=== PATIENT | male | born 1970 | race Caucasian/White ===

== ENCOUNTER 2016-07-04 00:19 | Emergency (ER) | payer MEDICARE, MEDICAID ==
[~2016-07-04] VITALS: Ht 182.9 cm; Wt 84.0 kg
[~2016-07-04 00:19] MED LIST: ALBU8.5H3 INH; ASPI-621 PO; ATEN-104 PO; ATEN25TA PO; ATEN50TA41 PO; ATOR20TA PO; CHLO5CAP2 PO; CLON1TAB PO; DOXE50CA PO; FLOMAX PO; FLUT12AE INH; GABA100C8 PO; LAMO25TA5 PO; OMEP20TA62 PO; SERT100T5 PO; TAMS-11 PO; TICA90TA PO; TRAM50TA2 PO
[2016-07-04 00:28] VITALS: BP 116/69
[2016-07-04] MEDS ORDERED: LIDOCAINE 1%, 20ML ONE (00:34)
[2016-07-04] MEDS ORDERED: LIDOCAINE 1%, 20ML INFIL ONE (01:00)
== END 2016-07-04 02:11 | disposition home or self-care (01) ==
LOC: ED 00:23
DX: S61.212A Laceration without foreign body of right middle finger without damage to nail, initial encounter (principal); S60.410A Abrasion of right index finger, initial encounter; I10 Essential (primary) hypertension; W22.8XXA Striking against or struck by other objects, initial encounter; Y93.89 Activity, other specified; Y92.89 Other specified places as the place of occurrence of the external cause; Y99.8 Other external cause status
CPT/HCPCS: 12001

== ENCOUNTER → 2016-08-09 | Outpatient (CLI) | payer MEDICARE, MEDICAID ==
[~2016-08-09] MED LIST changes: +GADOBUTROL 10 MMOL/10 ML PFS ONE
== END | disposition home or self-care (01) ==
LOC: CFH 12:26
PROVIDERS: ATTEND Registered Nurse
DX: M50.222 Other cervical disc displacement at C5-C6 level (principal); M50.223 Other cervical disc displacement at C6-C7 level; J32.0 Chronic maxillary sinusitis; H70.91 Unspecified mastoiditis, right ear; G93.89 Other specified disorders of brain; M48.06 Spinal stenosis, lumbar region; M50.30 Other cervical disc degeneration, unspecified cervical region; M25.78 Osteophyte, vertebrae
CPT/HCPCS: 70553; 72156; 82565; A9585

== ENCOUNTER → 2016-12-01 | Outpatient (CLI) | payer MEDICARE, MEDICAID ==
[~2016-12-01] MED LIST changes: -ALBU8.5H3 INH; +ALBU8.5H8 INH; +GABA-826 PO; -GABA100C8 PO; -GADOBUTROL 10 MMOL/10 ML PFS ONE
[2016-12-01 16:11] LABS: ASPARTATE AMINO TRANSFERASE 25 U/L (15-37); BLOOD UREA NITROGEN 17 mg/dL (7-18)
== END | disposition home or self-care (01) ==
LOC: CFH 11:02
PROVIDERS: ATTEND Internal Medicine Cardiovascular Disease
DX: E78.4 Other hyperlipidemia (principal); I10 Essential (primary) hypertension; R42 Dizziness and giddiness
CPT/HCPCS: 36415; 80053; 80061

== ENCOUNTER → 2017-04-13 | Outpatient (CLI) | payer MEDICARE, MEDICAID ==
[2017-04-13 13:08] LABS: ANION GAP 8 mmol/L (5-15); CALCIUM 8.4 mg/dL (8.5-10.1); CHLORIDE 106 mmol/L (98-107)
[2017-04-13 13:19] LABS: ALANINE AMINOTRANSFERASE 25 U/L (12-78); ALKALINE PHOSPHATASE 81 U/L (45-117); BILIRUBIN,TOTAL 0.5 mg/dL (0.2-1.0); CHOL/HDL RATIO 1.8; CHOLESTEROL, TOTAL 152 mg/dL (140-239); CREATININE 0.92 mg/dL (0.7-1.3); HDL CHOL % 55 % (26-37); HDL CHOLESTEROL (DIRECT) 84 mg/dL (40-60); LDL CHOLESTEROL,CALCULATED 53 mg/dL (54-169); LDL/HDL RATIO 0.6 (0.5-3.0); TOTAL PROTEIN 8.3 g/dL (6.4-8.2); TRIGLYCERIDES 77 mg/dL (50-200); VLDL CHOLESTEROL 15 mg/dL (0-25)
== END | disposition home or self-care (01) ==
LOC: CFH 11:32
PROVIDERS: ATTEND Internal Medicine Cardiovascular Disease
DX: I10 Essential (primary) hypertension (principal); E78.4 Other hyperlipidemia
CPT/HCPCS: 36415; 80053; 80061; 83721